=== PATIENT | female | born 1980 | race Hispanic/Latino ===

== ENCOUNTER 2018-05-22 21:48 | Emergency (ER) | payer OTHER ==
[2018-05-22 22:42] LABS: APPEARANCE,URINE Clear (CLEAR); BILIRUBIN,URINE Negative (NEGATIVE); COLOR,URINE Yellow (YELLOW); GLUCOSE, URINE (UA) Negative (NEGATIVE); KETONES,URINE 15 mg/dL (NEGATIVE); LEUKOCYTE ESTERASE ,URINE Negative (NEGATIVE); NITRATE,URINE Negative (NEGATIVE); OCCULT BLOOD,URINE Negative (NEGATIVE); PH,URINE 7.5 (5.0-8.0); PROTEIN,URINE Negative (NEGATIVE); UROBILINOGEN,URINE 0.2 mg/dL (0.2-1.0)
[2018-05-22 22:47] LABS: HCG,QUAL RESULT NEGATIVE (NEGATIVE)
[2018-05-22] MEDS ORDERED: ONDANSETRON HCL 4 MG/2 ML VIAL ONE (23:14)
[2018-05-22 23:20] LABS: BASOPHILS % (AUTO) 0.9 % (0.0-5.0); HEMATOCRIT 44.7 % (36-48); LYMPHOCYTES % (AUTO) 13.9 % (21.0-51.0); MEAN CORPUSCULAR HEMOGLOBIN 30.8 pg (27.0-33.0); MEAN CORPUSCULAR HGB CONC 34.4 g/dL (32.0-36.0); MEAN CORPUSCULAR VOLUME 89.4 fL (79-99); MONOCYTES % (AUTO) 8.4 % (3.0-13.0); NEUTROPHILS % (AUTO) 73.8 % (40.0-77.0); PLATELET COUNT (AUTO) 166 K/uL (130-400); RED CELL DISTRIBUTION WIDTH 13.4 % (11.0-15.5)
[2018-05-22 23:29] LABS: CREATININE 0.7 mg/dL (0.5-1.5); POTASSIUM 4.2 mmol/L (3.5-5.1)
[2018-05-22] MEDS ORDERED: MORPHINE SULFATE 4 MG/1ML SYG ONE (23:33)
[2018-05-22 23:34] LABS: ALBUMIN 4.1 g/dL (3.5-5.0); BILIRUBIN,TOTAL 0.9 mg/dL (0.2-1.0); TOTAL PROTEIN, SERUM 8.2 g/dL (6.0-8.3)
[2018-05-22] MEDS ORDERED: IOHEXOL-350 75 ML VIAL IV ONE (23:58)
[2018-05-23] MEDS ORDERED: LIDOCAINE HCL 2% VISCOUS 15 ML UDCUP ONE (01:26)
[2018-05-23] MEDS ORDERED: MAG HYDROX/AL HYDROX/SIMETH ES 30 ML SUSP UDCUP ONE (01:26)
[2018-05-23] MEDS ORDERED: FAMOTIDINE/PF 20 MG/2 ML VIAL IV ONE (01:27)
== END 2018-05-23 01:45 | disposition home or self-care (01) ==
LOC: EDH 21:48
DX: K29.70 Gastritis, unspecified, without bleeding (principal); E03.9 Hypothyroidism, unspecified
CPT/HCPCS: 36415; 74177; 80053; 81003; 81025; 83690; 85025; 96361; 96374; 96375; 99284; J2270; J2405; J3490; Q9967

== ENCOUNTER 2018-06-05 05:24 | Day surgery (SDC) | payer OTHER ==
[~2018-06-05] VITALS: Ht 170.2 cm; Wt 87.1 kg
[~2018-06-05 05:24] MED LIST: LEVO100T12 PO
[2018-06-05] MEDS ORDERED: SODIUM CHLORIDE 0.9% 1000ML 1,000 ML IV ONE (05:45)
[2018-06-05 06:05] VITALS: BP 101/49
[2018-06-05] MEDS ORDERED: HYDR200T4 PO (06:13)
[2018-06-05] MEDS ORDERED: vitamin d3 PO (06:13)
[2018-06-05] MEDS ORDERED: PROPOFOL 10 MG/ML 20ML VIAL IV ONE ×2 (07:00)
[2018-06-05 07:11] VITALS: BP 84/36
[2018-06-05 07:16] VITALS: BP 107/50
[2018-06-05 07:28] VITALS: BP 113/62
== END 2018-06-05 07:38 | disposition home or self-care (01) ==
LOC: DAH 05:24 → ENDO 05:24
PROVIDERS: ATTEND Internal Medicine
DX: K31.7 Polyp of stomach and duodenum (principal); K31.89 Other diseases of stomach and duodenum; K22.8 Other specified diseases of esophagus; E03.9 Hypothyroidism, unspecified; M19.90 Unspecified osteoarthritis, unspecified site; Z79.899 Other long term (current) drug therapy; Z68.30 Body mass index [BMI] 30.0-30.9, adult; I10 Essential (primary) hypertension; R14.0 Abdominal distension (gaseous); K59.01 Slow transit constipation
CPT/HCPCS: 43239; 81025; A4606; J2704 ×2; J7030